=== PATIENT | female | born 1960 | race Caucasian/White ===

== ENCOUNTER 2019-04-27 21:20 | Emergency (ER) | payer OTHER ==
[2019-04-27] MEDS: HYDROCODONE/APAP (5/325) TAB PO (22:49)
[2019-04-28 00:04] LABS: URIC ACID 8.1 mg/dl (3.1-7.9)
== END 2019-04-28 01:16 | disposition home or self-care (01) ==
LOC: FTE 04-28 01:16
DX: M10.9 Gout, unspecified (principal); I10 Essential (primary) hypertension; E11.9 Type 2 diabetes mellitus without complications
CPT/HCPCS: 73630; 73630-LT; 84560; 99284-25